=== PATIENT | male | born 1955 | race Caucasian/White ===

== ENCOUNTER 2020-10-07 05:35 | Day surgery (SDC) | payer MEDICARE, OTHER ==
[~2020-10-07] VITALS: Ht 165.1 cm; Wt 67.0 kg
[~2020-10-07 05:35] MED LIST: ANORO ELLIPTA1 EACH INH; FLOMAX0.4 MG PO; PROSCAR5 MG PO; VENTOLIN HFA18 GM INH
--- NOTE | 2020-10-07 09:22 | NUR ---
WAS ABLE TO CONNECT WITH PT HE WAS GOING TO OR. GAVE ENCOURAGEMENT AND SUPPORT, PT ACKNOWLEDGED. WILL FOLLOW NEEDED
--- NOTE | 2020-10-07 09:27 | NUR ---
10/07/20 0927 Xin,Teena 0918 PT ARRIVED TO PACU ON 8L VIA MASK WITH ORAL AIRWAY IN PLACE. RESP EVEN AND UNLABORED. VSS. CBI CLEAR TO LIGHT PINK IN COLOR AND DRAINING WNL. PT NONAROUSABLE.
--- NOTE | 2020-10-07 10:10 | NUR ---
PT ARRIVES TO MED SURG FLOOR VIA STRETCHER. PT ALERT AND ORIENTED, STATES NO PAIN AT THIS TIME BUT PRESSURE IN BLADDER. CBI INFUSING, CLEAR DRAINAGE NOTED. IVF INFUSING PER ORDER. PT PROVIDED WITH JELLO AND WATER, STATES NO NAUSEA, LUNCH ORDERED. CALL LIGHT IN REACH, WILL CONTINUE PLAN OF CARE
--- NOTE | 2020-10-07 11:20 | NUR ---
POST OP VITALS TAKEN BY HARPSICHORD MAKER, PT STATES NO NEEDS
[2020-10-07] MEDS ORDERED: BACLOFEN10 MG PO (13:19)
[2020-10-07] MEDS ORDERED: HYDROCHLOROTH12.5 MG PO (13:21)
--- NOTE | 2020-10-07 13:30 | NUR ---
POST OP VITALS TAKEN, PT HAD LUNCH, STATES NO NEEDS AT THIS TIME. NEW BAGS OF CBI FLUID HUNG AND I/O's CHARTED. CBI DRAINAGE LIGHT TO MEDIUM PINK, CONTINUALLY WEANING SLOWLY. WATER REFRESHED.
--- NOTE | 2020-10-07 14:30 | NUR ---
POST OP VITALS TAKEN, PT STATES NO NEEDS.
--- NOTE | 2020-10-07 14:37 | NUR ---
PT ASLEEP, DID NOT DISTURB. WILL FOLLOW
--- NOTE | 2020-10-07 16:00 | NUR ---
IV ABX infusing. CBI drainage light pink in color. Pt states no needs, closes eyes to rest. Call light in reach.
--- NOTE | 2020-10-07 18:20 | NUR ---
Vitals taken. IVF infusing WNL. CBI with light pink to red drainage noted, continuing to slowly wean. CBI sheet in room, I/O's recorded. Pt states this hospital has "the best food and staff". Juice provided per request, no further needs at this time
--- NOTE | 2020-10-07 19:23 | NUR ---
REPORT RECEIVED FROM DAY SHIFT RN. PT LYING IN BED ALERT AND ORIENTED. CBI INFUSING. URINE PINK. REPORTS PAIN IS TOLERABLE AT THIS TIME. APPLE JUICE PROVIDED PER REQUEST. NO FURTHER NEEDS AT THIS TIME. WHITE BOARD UPDATED. CALL LIGHT IN REACH.
--- NOTE | 2020-10-07 20:42 | NUR ---
CALL LIGHT ANSWERED. CPOX ALARMING pt SCRATCHING LEG. NO ADDITIONAL NEEDS. SPO2 WNL ON RA. CALL LIGHT IN REACH.
--- NOTE | 2020-10-07 21:16 | NUR ---
EVENING ASSESSMENT COMPLETE. PRN ADMINISTERED FOR 5/10 "BURNING" PAIN IN THE BLADDER/PENIS AREA. CBI INFUSING. URINE PINK COLORED, NO CLOTS NOTED. PRN ADMINISTERED FOR C/O ITCHING. IVF INFUSING. SCD'S IN PLACE. PUDDING AND APPLE JUICE PROVIDED PER REQUEST. PT DENIES QUESTIONS OR CONCERNS. CALL LIGHT IN REACH.
--- NOTE | 2020-10-07 22:50 | NUR ---
PT RESTING IN BED WITH EYES CLOSED. RESPIRATIONS EVEN. CALL LIGHT IN REACH.
--- NOTE | 2020-10-08 01:45 | NUR ---
PT RESTING IN BED WITH EYES CLOSED, NAD.
--- NOTE | 2020-10-08 02:32 | NUR ---
VS AND I&O COMPLETE. PRN ADMINISTERED FOR C/O PAIN. CBI SLOWLY INFUSING. URINE IN TUBING PINK TINGED. NO BLOOD CLOTS NOTED. CPOX AND SCD'S IN PLACE. PT DENIES FURTHER NEEDS. CALL LIGHT IN REACH.
--- NOTE | 2020-10-08 06:22 | NUR ---
VS AND I&O COMPLETE. CLEAR TO LIGHT PINK URINE NOTED IN RILEY TUBING. NO BLOOD CLOTS NOTED. CBI CLAMPED AT THIS TIME. PT REPORTS PAIN IS TOLERABLE. FRESH WATER AND JUICE PROVIDED. NO FURTHER NEEDS. CALL LIGHT IN REACH.
--- NOTE | 2020-10-08 07:05 | NUR ---
Report received from Iesha FLETCHER. Pt resting in bed. CBI noted to have small amount red drainage noted, CBI fluid continued at this time. Will continue to monitor. Pt has no needs.
--- NOTE | 2020-10-08 07:39 | NUR ---
MED REC COMPLETE
--- NOTE | 2020-10-08 08:15 | NUR ---
Pt used call light to express discomfort related to catheter. Noted that CBI fluid not draining into bag, manually irrigated catheter for clots and bladder scanned with 9ml in bladder. Fluid resumes flowing into rivas bag and pt states some relief. Cranberry/red drainage. Will continue to monitor
--- NOTE | 2020-10-08 08:45 | NUR ---
CBI clamped at this time. Pt states relief after irrigation of rivas. Will continue to monitor, no other needs at this time. Assessment complete.
--- NOTE | 2020-10-08 08:55 | NUR ---
Scheduled ABX infusing, pt states comfortable. CBI remains clamped. Cranberry color drainage with no clots, dilute with urine. Will continue to monitor.
--- NOTE | 2020-10-08 09:50 | NUR ---
Nelson emptied, 450 urine charted. CBI drainage red with no clots noted. IVF infusing WNL.
--- NOTE | 2020-10-08 09:50 | NUR ---
PATIENT IN BED RESTING, IN ROOM. RN EMPTYING AND CHARTING RILEY AMOUNT. VITALS CHARTED. CALL LIGHT IN REACH. NO FURTHER NEEDS AT THIS TIME.
--- NOTE | 2020-10-08 10:45 | NUR ---
Dr Medina called and updated on pt condition, pt ready to be discharged. Discharge teaching complete.
[2020-10-08] MEDS ORDERED: CIPRO500 MG PO (10:52)
[2020-10-08] MEDS ORDERED: OXYCODONE HCL5 MG PO (10:53)
--- NOTE | 2020-10-08 11:55 | NUR ---
PT DISCHARGED TO HOME WITH BELONGINGS IN HAND, THIS RN PROVIDED WHEELCHAIR RIDE OUT TO PT'S FRIEND'S VEHICLE. PT IN STABLE CONDITION, VS WNL. DISCHARGE INFORMATION PROVIDED AND PT VERBALIZES UNDERSTANDING. EDUCATED REGARDING RILEY CARE/USE AND PT DEMONSTRATES KNOWLEDGE. ALL QUESTIONS ANSWERED AND CONCERNS ADDRESSED. RILEY DRAINING TO GRAVITY, F/U APPT MADE WITH DR FELIX. UPDATED ON PT CONDITION.
--- NOTE | 2020-10-08 17:27 | OR ---
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 POSTOPERATIVE DIAGNOSIS: Trilobar benign prostatic hyperplasia with lower urinary tract symptoms. NAMES OF PROCEDURES: 1. Urethral dilation using Bladen sounds from 18-Sri Lankan to 30-Sri Lankan. 2. Transurethral resection of the prostate. ANESTHESIA: General. ESTIMATED BLOOD LOSS: 50 mL. COMPLICATIONS: None. SPECIMENS: Prostate chips sent to the lab for evaluation. DRAINS: A 22-Sri Lankan 3-way Nelson catheter, connected to continuous bladder irrigation. INDICATIONS FOR PROCEDURE: Mr. Patterson is a very pleasant 65-year-old gentleman, who is well known to me. He has a history of benign prostatic hyperplasia with lower urinary tract symptoms and has been taking maximum medication therapy for his symptoms. He recently underwent diagnostic cystoscopy, which revealed [id number] trilobar prostatic hyperplasia. Also, noted was grade 3 to 4 bladder wall trabeculation, which is evidence of long-standing active bladder outlet obstruction. I recommended that he undergo transurethral resection of the prostate at the time for definitive management of his BPH symptoms. After discussion of the risks and benefits of the procedure, the patient agreed to proceed with elective transurethral resection of the prostate. Electronically Signed By: PORFIRIO FELIX MD 10/08/20 1727 PATIENT NAME: JESSICA PATTERSON OPERATIVE REPORT DATE OF : 53 REPORT #: [id number] PHYSICIAN: PORFIRIO FELIX MD PCP: IRON CLIFTON NP REPORT IS CONFIDENTIAL AND NOT TO BE RELEASED WITHOUT AUTHORIZATION [facility] [address], [place] [address] Signed OPERATIVE FINDINGS: 1. Digital rectal examination reveals a 45 g prostate that is soft, smooth, and symmetric with no focal nodules. 2. Diagnostic cystoscopy reveals diffuse grade 3 to 4 bladder wall trabeculation. I am unable to evaluate the bilateral ureteral orifices as they are beneath the large median lobe of the prostate. 3. Ureteroscopy again reveals trilobar hyperplasia. This was resected in a stepwise fashion using a 24-Sri Lankan loop and with bipolar energy. The median lobe of the prostate was resected 1st, then followed by the left lateral lobe and then right lateral lobe of the prostate. 4. The resection was taken down to the level of just proximal to the verumontanum. At the end of the procedure, the ureteral orifices were evaluated and I did not appreciate any iatrogenic injury to either of the orifices. 5. At the end of the procedure, a 22-Sri Lankan 3-way Nelson catheter was inserted into the patient's bladder and connected to continuous bladder irrigation. DESCRIPTION OF PROCEDURE: After informed consent was obtained, the patient was taken back to the operating room. He was transferred from the [facility] to the operating room table where general anesthesia was induced. He was placed in the dorsal lithotomy position and his genitalia were prepped and draped in a standard sterile fashion. A digital rectal examination was performed. Please see above findings. I then switched to sterile gloves and dilated the patient's urethra from 18-Sri Lankan to 30-Sri Lankan using Bladen sounds without difficulty. A 60 mL syringe was then used to inject Surgilube into the patient's urethra. Using a visual obturator, a 26-Sri Lankan sheath was inserted through the patient's urethra and into his bladder under direct visualization. Panendoscopic views of the bladder were then obtained. I then switched out the visual obturator for the resectoscope with a 24-Sri Lankan loop. I was initially unable to visualize the bilateral ureteral orifices due to the presence of median lobe. I very carefully resected the median lobe down all the while attempting to avoid the ureteral orifices. I was finally able to see the bilateral ureteral orifices once I completed the resection of the median lobe. I then turned my attention to the left lateral lobe and resected that using the 24-Sri Lankan loop. As stated above, the resection of both lateral lobes was taken down to the level of the verumontanum. I resected down to the capsule on both sides and without any difficulty. All the while, hemostasis was achieved and maintained using bipolar electrocautery. The patient's bladder was copiously irrigated using a Ana syringe, 3 to 4 times during the procedure to extract all the prostate chips from the patient's bladder. During resection of the apex of the prostatic urethra, I did unroof a collection of prostate calculi located on both sides of the prostatic urethra. I tried to extract as many of these prostate stones as I could. Hemostasis was then further achieved using a bipolar button. Once I was satisfied that a thorough resection had taken place and hemostasis had been achieved, the resectoscope was removed, leaving the Electronically Signed By: PORFIRIO FELIX MD 10/08/20 1727 PATIENT NAME: JESSICA PATTERSON OPERATIVE REPORT DATE OF : 53 REPORT #: [id number] PHYSICIAN: PORFIRIO FELIX MD PCP: IRON CLIFTON NP REPORT IS CONFIDENTIAL AND NOT TO BE RELEASED WITHOUT AUTHORIZATION [address] [place] [address] Signed 26-Sri Lankan sheath behind. I inserted a Sensor wire through the sheath and into the patient's bladder. The sheath was then removed, leaving the wire behind. Over the wire, I passed a 22-Sri Lankan 3-way Nelson catheter into the patient's bladder without difficulty. The Sensor wire was removed and the Nelson catheter balloon was filled with 30 mL of water. The catheter flushed quite easily. The catheter was then hooked to continuous bladder irrigation. The procedure was then terminated. The patient tolerated the procedure well without any complication. He will now be sent to the Postanesthesia Care Unit in stable condition. DISPOSITION: Once the patient was awake enough, I did notify him today that his procedure went well and without any complication. He will now be transferred to the floor for continued management of his Nelson catheter including slow wean of his continuous bladder irrigation. He will be given pain control and antiemetics as needed. His diet will be advanced as tolerated. Nursing staff will slowly wean off the CBI to keep his urine clear to light pink in color. By tomorrow morning, his urine should be clear off CBI and I anticipate that he will be discharged to home tomorrow with his Nelson catheter gravity drainage. He will be scheduled to return to clinic in 3 days for a voiding trial. He will be sent home with Cipro 500 mg one tablet p.o. b.i.d. for a total of 7 days, along with oxycodone 5 mg one tablet p.o. q.6 hours p.r.n. pain, dispense #20. MD STEPHANY Weathers/RACHLE /[id number] Copies: ~ Electronically Signed By: PORFIRIO FELIX MD 10/08/20 1727 PATIENT NAME: JESSICA PATTERSON OPERATIVE REPORT DATE OF : 53 REPORT #: [id number] PHYSICIAN: PORFIRIO FELIX MD PCP: IRON CLIFTON NP REPORT IS CONFIDENTIAL AND NOT TO BE RELEASED WITHOUT AUTHORIZATION
--- NOTE | 2020-10-11 15:03 | PATH ---
[facility] [address] [facility] [place], [place] [address] Signed SPECIMEN(S): A PROSTATE CHIPS SPECIMEN SOURCE: A. PROSTATE CHIPS CLINICAL HISTORY: Preop diagnosis: BPH. Postop diagnosis: TURP FINAL PATHOLOGIC DIAGNOSIS: Prostate chips, TUR: - Benign prostatic glandular tissue with stromal and glandular hyperplasia and focal basal cell hyperplasia. JVR:cml:C2NR MICROSCOPIC EXAMINATION: Histologic sections of all submitted blocks are examined by light microscopy. These findings, together with the gross examination, support the pathologic diagnosis. Immunostains are performed on block A1 and show the following: - Cytokeratin AE/AE3: Positive in glands of concern. - TRICAP multiplex stain (P63, Highmolecular weight cytokeratin, P504s): Negative p504s and positive basal staining in the area of concern. - Uroplakin: Negative in the area of concern. GROSS DESCRIPTION: The specimen, labeled "TT, prostate chips," is received in formalin and consists of an 18 g pink-conde, rubbery tissue fragment that in aggregate measure 9.0 x 6.0 x 1.3 cm. Approximately 75% of the specimen is submitted in nine cassettes (A1-A9). JS (under the direct supervision of a pathologist) The Gross Description was prepared using a voice recognition system. The report was reviewed for accuracy; however, sound-alike word errors, addition and/or deletions may occur. If there is any question about this report, please contact Client Services. ADDITIONAL NOTES: Immunohistochemical and/or in situ hybridization studies were performed on this case with the appropriate positive controls that react as expected. This test was developed and its performance characteristics determined by [facility]. It has not been cleared or approved by the U.S. Food and Drug Administration. The FDA has determined that PATIENT NAME: JESSICA JACKMAN PATHOLOGY DATE OF : 53 REPORT #: [id number] PHYSICIAN: DEVON PATHOLOGY PCP: IRON CLIFTON NP REPORT IS CONFIDENTIAL AND NOT TO BE RELEASED WITHOUT AUTHORIZATION [facility] [address] [place], [place] [address] Signed such clearance or approval is not necessary. This test is used for clinical purposes. It should not be regarded as investigational or for research. [facility] is certified under the Clinical Laboratory Improvement Amendments of 1988 (CLIA) as qualified to perform high complexity clinical laboratory testing. This assay has not been validated for specimens that have been decalcified. PERFORMING LABORATORY: The technical component was performed by [facility], [address] [place] [address] (Commissioned [employer] Officer: Keila Aleman MD; CLIA# [id number]). Professional interpretation was performed by [facility], [place] [address]. Diagnostician: Juaquin Art MD Pathologist Electronically Signed 10/11/2020 Copies: ~ PATIENT NAME: JESSICA JACKMAN PATHOLOGY DATE OF : 53 REPORT #: [id number] PHYSICIAN: DEVON WALKER PCP: IRON CLIFTON NP REPORT IS CONFIDENTIAL AND NOT TO BE RELEASED WITHOUT AUTHORIZATION
== END 2020-10-08 11:55 | disposition home or self-care (01) ==
LOC: OPS 05:35 → DS 05:35 → MS 05:35 → DS 06:45 → OPS 06:45 → MS 10:05 → OPS 10-08 11:55
PROVIDERS: ATTEND Urology
PROC: 0VT00ZZ Resection of Prostate, Open Approach (ICD-10-PCS; principal; 2020-10-07 06:45)
DX: N40.1 Benign prostatic hyperplasia with lower urinary tract symptoms (principal); J44.9 Chronic obstructive pulmonary disease, unspecified; G43.909 Migraine, unspecified, not intractable, without status migrainosus; F17.210 Nicotine dependence, cigarettes, uncomplicated
CPT/HCPCS: 00914; 36415; 80048; 88305; 88342; 88344; C1769; J0690; J0696; J1100; J1170; J1885; J2001; J2405; J2704; J3010; J7030; J7121

== ENCOUNTER 2021-02-06 15:05 | Emergency (ER) | payer MEDICARE, OTHER ==
[~2021-02-06] VITALS: Ht 165.1 cm; Wt 66.7 kg
[~2021-02-06 15:05] MED LIST changes: +BACLOFEN10 MG PO; +CIPRO500 MG PO; +HYDROCHLOROTH12.5 MG PO; +OXYCODONE HCL5 MG PO
[2021-02-06] MEDS ORDERED: HYDROCODON-ACE1 EA10 PO (19:47)
== END 2021-02-06 20:19 | disposition home or self-care (01) ==
LOC: ED 15:05
DX: K85.90 Acute pancreatitis without necrosis or infection, unspecified (principal); F17.200 Nicotine dependence, unspecified, uncomplicated; Z88.8 Allergy status to other drugs, medicaments and biological substances
CPT/HCPCS: 74018; 76705; 80053; 81001; 83690; 85025; 96374; 96375; 99284-25; G0480; J1885; J2270; J7030

== ENCOUNTER 2021-02-10 17:41 | Emergency (ER) | payer MEDICARE, OTHER ==
[~2021-02-10] VITALS: Ht 165.1 cm; Wt 66.7 kg
[~2021-02-10 17:41] MED LIST changes: +HYDROCODON-ACE1 EA10 PO
--- OUTSIDE RECORDS SUMMARY | 2021-02-10 17:44 | XMS ---
PreManage Notification: JESSICA JACKMAN [employer] Events No recent Security Events currently on file CRITERIA MET - [facility] - 2 Visits in 30 Days CARE PROVIDERS There are no care providers on record at this time. Lindsay has no Care Guidelines for this patient. Hari VISIT COUNT (12 MO[address] [facility] TOTAL 2 NOTE: Visits indicate total known visits. ED/C VISIT TRACKING (12 MO.) [facility] COMPLAINT: - ABD PAIN, BACK PAIN, SOB 02/06/2021 15:[address] [facility] TYPE: Emergency COMPLAINT: - ABDOMINAL PAIN,PACK PAIN DIAGNOSES: - Epigastric pain - Unspecified abdominal pain - Nicotine dependence, unspecified, uncomplicated - Allergy status to other drugs, medicaments and biological substances - Acute pancreatitis without necrosis or infection, unspecified INPATIENT VISIT TRACKING (12 MO.) No inpatient visits to display in this time frame [email or web address]
== END 2021-02-10 21:37 | disposition home or self-care (01) ==
LOC: ED 17:41
DX: R10.13 Epigastric pain (principal); F17.200 Nicotine dependence, unspecified, uncomplicated; Z88.8 Allergy status to other drugs, medicaments and biological substances
CPT/HCPCS: 74177; 80053; 83690; 85025; 96375; 99284-25; G0480; J1170; J2550; J7030; Q9967

== ENCOUNTER 2022-02-20 16:18 | Emergency (ER) | payer MEDICARE, OTHER ==
[~2022-02-20] VITALS: Ht 165.1 cm; Wt 66.7 kg
[2022-02-20] MEDS ORDERED: DICLOFENAC35 MG PO (18:05)
[2022-02-20] MEDS ORDERED: MELOXICAM15 MG PO (18:06)
[2022-02-20] MEDS ORDERED: METOPROLOL TART25 MG PO (18:06)
[2022-02-20] MEDS ORDERED: LISINOPRIL20 MG PO (18:07)
[2022-02-20] MEDS ORDERED: ANORO ELLIPTA1 EACH INH (18:07)
[2022-02-20] MEDS ORDERED: LISINOPRIL-HCT1 EAC1 PO (20:53)
--- NOTE | 2022-02-21 17:36 | EKG ---
[facility] [address] [facility] [place], [place] [address] Signed Sinus bradycardia Otherwise normal ECG No previous ECGs available Confirmed by MICHELLE AGUILAR MD ([id number]) on 02/21/2022 5:36:20 PM Electronically Signed By: MICHELLE AGUILAR MD 02/21/22 1736 PATIENT NAME: JESSICA JACKMAN Electrocardiogram DATE OF : 53 PHYSICIAN: MICHELLE AGUILAR MD REPORT #: [id number] REPORT IS CONFIDENTIAL AND NOT TO BE RELEASED WITHOUT AUTHORIZATION
--- NOTE | 2022-02-21 17:36 | EKG ---
[facility] [address] [facility] [place], [place] [address] Signed Sinus bradycardia Otherwise normal ECG When compared with ECG of 20-FEB-2022 16:21, (Unconfirmed) No significant change was found Confirmed by MICHELLE AGUILAR MD ([id number]) on 02/21/2022 5:36:34 PM Electronically Signed By: MICHELLE AGUILAR MD 02/21/22 1736 PATIENT NAME: JESSICA JACKMAN Electrocardiogram DATE OF : 53 PHYSICIAN: MICHELLE AGUILAR MD REPORT #: [id number] REPORT IS CONFIDENTIAL AND NOT TO BE RELEASED WITHOUT AUTHORIZATION
== END 2022-02-20 21:10 | disposition home or self-care (01) ==
LOC: ED 16:18
DX: I10 Essential (primary) hypertension (principal); J44.9 Chronic obstructive pulmonary disease, unspecified; F17.200 Nicotine dependence, unspecified, uncomplicated; Z88.8 Allergy status to other drugs, medicaments and biological substances; Z79.899 Other long term (current) drug therapy
CPT/HCPCS: 36415; 71045; 80053; 83735; 84484; 85025; 93005; 93010; 96374; 96375; 99285-25; A9270; J0360

== ENCOUNTER 2022-04-05 08:45 | Emergency (ER) | payer MEDICARE, OTHER ==
[~2022-04-05] VITALS: Ht 165.1 cm; Wt 71.9 kg
[~2022-04-05 08:45] MED LIST changes: +DICLOFENAC35 MG PO; +LISINOPRIL-HCT1 EAC1 PO; +LISINOPRIL20 MG PO; +MELOXICAM15 MG PO; +METOPROLOL TART25 MG PO
--- NOTE | 2022-04-05 12:29 | EKG ---
[facility] [address] [facility] [place], [place] [address] Signed Marked sinus bradycardia Abnormal ECG When compared with ECG of 20-FEB-2022 18:13, No significant change was found Confirmed by FERNANDO LIANG MD ([id number]) on 04/05/2022 12:29:44 PM Electronically Signed By: FERNANDO LIANG MD 04/05/22 1229 PATIENT NAME: JESSICA JACKMAN Electrocardiogram DATE OF : 53 PHYSICIAN: FERNANDO LIANG MD REPORT #: [id number] REPORT IS CONFIDENTIAL AND NOT TO BE RELEASED WITHOUT AUTHORIZATION
[2022-04-05] MEDS ORDERED: HYDROCODON-ACE1 EA10 PO (14:24)
[2022-04-05] MEDS ORDERED: ONDANSETRON ODT4 MG PO (14:24)
== END 2022-04-05 14:37 | disposition home or self-care (01) ==
LOC: ED 08:45
DX: K85.90 Acute pancreatitis without necrosis or infection, unspecified (principal); I10 Essential (primary) hypertension; J44.9 Chronic obstructive pulmonary disease, unspecified; F17.200 Nicotine dependence, unspecified, uncomplicated; Z88.8 Allergy status to other drugs, medicaments and biological substances; Z79.899 Other long term (current) drug therapy
CPT/HCPCS: 36415; 71045; 74177; 76705; 80053; 83690; 84484; 85025; 93005; 93010; 99284-25; J0360; Q9967

== ENCOUNTER 2024-03-28 16:28 | Emergency (ER) | payer MEDICARE, OTHER ==
[~2024-03-28] VITALS: Ht 165.1 cm; Wt 63.2 kg
[~2024-03-28 16:28] MED LIST changes: +AMLODIPINE BESYL5 MG PO; +ATORVASTATIN CA40 MG PO; +ONDANSETRON ODT4 MG PO
[2024-03-28] MEDS ORDERED: MELATONINMAX10 MG PO (16:40)
[2024-03-28] MEDS ORDERED: NEURONTIN300 MG PO (16:41)
[2024-03-28] MEDS ORDERED: ASPIRIN 81 MG CHEW PO ONE (16:45)
[2024-03-28] MEDS ORDERED: NITROGLYCERIN 0.4 MG SUBL SL PRN (16:45)
[2024-03-28 16:56] LABS: BASOPHILS 1.2 % (0-2); EOSINOPHILS 2.5 % (0-6); HEMATOCRIT 52.2 % (35.0-50.0); HEMOGLOBIN 18.1 g/dL (12.0-18.0); LYMPHOCYTES 22.5 % (24-44); MCH 32.3 (27-36); MCHC 34.7 g/dl (30-36); MONOCYTES 7.5 % (0-12); NEUTROPHILS 66.3 % (39-80); PLATELET COUNT 239 K/uL (140-440); RBC 5.61 M/ul (4.3-5.7); RDW 15.4 (10.5-15.0)
[2024-03-28 17:03] LABS: ALBUMIN/GLOBULIN RATIO 1.05 (1.1-2.4); ANION GAP 7.2 (7-21); BILIRUBIN, TOTAL 0.5 ng/dL (0.2-1.0); BUN/CREATININE RATIO 15.83 (6.0-28.6); CALCIUM 9.5 mg/dL (8.5-10.1); CREATININE, SERUM 1.2 mg/dL (0.70-1.30); MAGNESIUM 2.2 mg/dL (1.8-2.4); POTASSIUM 5.2 mmol/L (3.5-5.1); PROTEIN, TOTAL 7.8 g/dL (6.4-8.2)
[2024-03-28 19:26] VITALS: BP 126/86
--- NOTE | 2024-03-30 11:56 | EKG ---
[facility] [address] [facility] [place] [address] Signed Normal sinus rhythm with sinus arrhythmia Normal ECG No previous ECGs available Confirmed by Jhony Valentino MD ([id number]) on 03/30/2024 11:56:02 AM Electronically Signed By: JHONY VALENTINO MD 03/30/24 1156 PATIENT NAME: JESSICA JACKMAN Electrocardiogram DATE OF : 53 PHYSICIAN: JHONY VALENTINO MD REPORT #: [id number] REPORT IS CONFIDENTIAL AND NOT TO BE RELEASED WITHOUT AUTHORIZATION
== END 2024-03-28 19:30 | disposition home or self-care (01) ==
LOC: ED 16:28
PROVIDERS: Emergency Medicine
DX: R07.89 Other chest pain (principal); I10 Essential (primary) hypertension; J43.9 Emphysema, unspecified; F17.200 Nicotine dependence, unspecified, uncomplicated; Z79.899 Other long term (current) drug therapy
CPT/HCPCS: 36415; 71045; 80053; 83735; 84484; 85025; 93005; 93010; 99285-25; A9270